=== PATIENT | male | born 1930 | race Caucasian/White ===

== ENCOUNTER 2017-05-13 20:16 | Inpatient (IN) | payer MEDICARE, MEDICAID ==
[~2017-05-13] VITALS: Ht 172.7 cm; Wt 73.5 kg
[2017-05-13] MEDS ORDERED: ONDANSETRON 4 MG/2 ML VIAL IV PRN (21:15)
[2017-05-13] MEDS ORDERED: Z GUARD REMEDY PASTE 57 GM TUBE TOP PRN (21:15)
[2017-05-13] MEDS ORDERED: HYDROCODONE/APAP 5-325MG TABLET PO PRN (21:15)
[2017-05-13] MEDS ORDERED: MAGNESIUM HYDROXIDE 30 ML LIQUID UDC PO PRN (21:15)
[2017-05-13] MEDS ORDERED: ACETAMINOPHEN 325 MG TABLET PO PRN (21:15)
--- NOTE | 2017-05-13 22:00 | NUR ---
Pt luciano from facility. Pt sent here for g-tube placement per PMD (Dr. Lynch) Pt non-verbal, resting in position of comfort for self. No obvious signs of distress. Awaiting further eval.
[2017-05-13 23:51] LABS: BASOPHILS # (AUTO) 0.3 K/uL (0.0-8.0); BASOPHILS % (AUTO) 3.5 % (0.0-2.0); EOSINOPHILS # (AUTO) 0.4 K/uL (0.0-0.7); EOSINOPHILS % (AUTO) 4.8 % (0.0-7.0); HEMOGLOBIN 13.6 G/DL (14.0-18.0); LYMPHOCYTES # (AUTO) 1.8 K/UL (0.8-4.8); LYMPHOCYTES % (AUTO) 22.6 % (20.5-51.5); MEAN CORPUSCULAR HEMOGLOBIN 27.4 UUG (27.0-31.0); MEAN CORPUSCULAR HGB CONC 32 g/dL (32.0-37.0); MEAN CORPUSCULAR VOLUME 86.7 FL (82.0-92.0); MONOCYTES # (AUTO) 0.8 K/UL (0.1-1.30); MONOCYTES % (AUTO) 10.2 % (0.0-11.0); NEUTROPHILS # (AUTO) 4.7 K/UL (1.8-8.9); NEUTROPHILS % (AUTO) 58.9 % (38.5-71.5); PLATELET COUNT (AUTO) 175 K/UL (150-450); RED BLOOD CELL COUNT(AUTO) 4.96 MIL/UL (4.7-6.1)
[2017-05-14 00:07] LABS: CARBON DIOXIDE 25 mmol/L (21-32); CHLORIDE 106 mmol/L (98-107); CREATININE 0.7 mg/dL (0.6-1.3); GLUCOSE 96 mg/dL (74-106); UREA NITROGEN, BLOOD 16 mg/dL (7-18)
[2017-05-14 00:13] LABS: ALANINE AMINOTRANSFERASE 29 U/L (16-63); ALKALINE PHOSPHATASE 93 U/L (50-136); ASPARTATE AMINOTRANSFERASE 25 U/L (15-37); BILIRUBIN,TOTAL 0.5 mg/dL (0.2-1.0); TOTAL PROTEIN, SERUM 8.2 g/dL (6.4-8.2)
--- NOTE | 2017-05-14 00:26 | NUR ---
Report called to CONCHITA Moser. Preparing to transfer pt to the floor.
[2017-05-14] MEDS ORDERED: AMLO10TA2 PO (00:49)
[2017-05-14] MEDS ORDERED: CALC-555 PO (00:49)
[2017-05-14] MEDS ORDERED: LEVE500T9 PO (00:49)
[2017-05-14] MEDS ORDERED: LOSA50TA21 PO (00:49)
[2017-05-14] MEDS ORDERED: LACT1CAP65 PO (00:49)
[2017-05-14] MEDS ORDERED: ACET-2154 PO (00:49)
[2017-05-14] MEDS ORDERED: FAMO-132 PO (00:49)
[2017-05-14] MEDS ORDERED: CRAN450C PO (00:49)
[2017-05-14] MEDS ORDERED: ASCO500W7 PO (00:49)
[2017-05-14] MEDS ORDERED: ATOR10TA PO (00:49)
[2017-05-14] MEDS ORDERED: MULT1TAB11 PO (00:49)
[2017-05-14] MEDS ORDERED: RIVA10TA PO (00:50)
[2017-05-14 01:20] VITALS: BP 115/74
[2017-05-14 01:30] VITALS: BP 115/74
[2017-05-14 04:40] VITALS: BP 129/79
[2017-05-14] MEDS: IV D5 1/2 NS 1000 ML 1,000 ML IV PRN (05:59)
[2017-05-14 07:32] LABS: CARBON DIOXIDE 23 mmol/L (21-32); CHLORIDE 107 mmol/L (98-107); CREATININE 0.7 mg/dL (0.6-1.3); GLUCOSE 95 mg/dL (74-106); MAGNESIUM 1.8 mg/dL (1.8-2.4); PHOSPHOROUS 2.8 mg/dL (2.5-4.9); POTASSIUM 3.7 mmol/L (3.5-5.1); UREA NITROGEN, BLOOD 15 mg/dL (7-18)
[2017-05-14 07:37] LABS: BASOPHILS % (AUTO) 0.3 % (0.0-2.0); EOSINOPHILS # (AUTO) 0.3 K/uL (0.0-0.7); HEMATOCRIT 39.9 % (36.7-47.1); LYMPHOCYTES # (AUTO) 1.7 K/uL (20.0-40.0); LYMPHOCYTES % (AUTO) 21.8 % (20.5-51.5); MEAN CORPUSCULAR HEMOGLOBIN 28.2 uug (23.8-33.4); MEAN CORPUSCULAR HGB CONC 33 g/dL (32.5-36.3); MEAN CORPUSCULAR VOLUME 86.7 fL (73.0-96.2); MONOCYTES % (AUTO) 12.4 % (0.0-11.0); NEUTROPHILS # (AUTO) 4.8 K/uL (1.8-8.9); NEUTROPHILS % (AUTO) 61.5 % (38.5-71.5); PLATELET COUNT (AUTO) 169 K/uL (152-348); WHITE BLOOD COUNT (AUTO) 7.8 K/uL (3.6-10.2)
[2017-05-14 12:11] VITALS: BP 120/84
[2017-05-14] MEDS ORDERED: ACETAMINOPHEN 325 MG TABLET PO PRN (13:00)
[2017-05-14] MEDS: LEVETIRACETAM 500 MG TABLET PO SCH ×2 (13:37→17:00)
[2017-05-14 16:14] VITALS: BP 157/88
[2017-05-14] MEDS ORDERED: FAMOTIDINE 20 MG TABLET PO SCH (16:30)
[2017-05-14 19:50] VITALS: BP 124/86
[2017-05-14] MEDS: ATORVASTATIN 10 MG TABLET PO SCH (21:36)
[2017-05-15 04:25] VITALS: BP 127/85
[2017-05-15] MEDS: FAMOTIDINE 20 MG TABLET PO SCH (08:34)
[2017-05-15] MEDS: CALCIUM CARB/VITAMIN D 500MG-200UNITS TABLET PO SCH (08:34)
[2017-05-15] MEDS: LEVETIRACETAM 500 MG TABLET PO SCH ×3 (08:34→17:26)
[2017-05-15] MEDS: LOSARTAN POTASSIUM 50 MG TABLET PO SCH (08:35)
[2017-05-15] MEDS: AMLODIPINE 10 MG TABLET PO SCH (11:02)
[2017-05-15 11:45] VITALS: BP 130/42
[2017-05-15 15:11] VITALS: BP 117/52
--- NOTE | 2017-05-15 19:30 | NUR ---
Pt in room in no acute distress. Contractions still present to upper extremities. Non verbal and reminded of NPO status. Abdominal ultrasound states Echogenic liver consistent with fatty infiltration. Right leg SCD pump on. Bed alarm noted. Continue to monitor.
[2017-05-15 20:17] VITALS: BP 116/76
[2017-05-15] MEDS: LACTOBACILLUS RHAMNOSUS GG 1 EACH CAPSULE PO SCH (20:20)
[2017-05-15] MEDS: ATORVASTATIN 10 MG TABLET PO SCH (20:20)
--- NOTE | 2017-05-15 23:15 | NUR ---
Pt arrived alert awake oriented to self and . in telemetry sinus rhythm. Pt noted BP 172/69. No s/s of acute distress. Pt noted with redness to sacral and groin area. Able to follow simple commands. Awaiting MD orders. Continuing or Merrem IV antibiotics from ER. Denies pain or discomfort at this time. Addendum: 05/16/17 at 0032 by JASS OROPEZA RN Wrong pt. Please disregard.
--- NOTE | 2017-05-16 01:00 | NUR ---
Pt in room asleep and remains NPO status at this time. Continue to monitor. HOB elevated 30 degrees. Bed alarm on.
--- NOTE | 2017-05-16 05:30 | NUR ---
Stool sample for OB obtained. No acute distress at this time. Continuing NPO and IV hydration. Continue to monitor. Pt repositioned.
[2017-05-16 06:44] VITALS: BP 132/88
[2017-05-16] MEDS: IV D5 1/2 NS 1000 ML 1,000 ML IV PRN (06:46)
--- NOTE | 2017-05-16 07:30 | NUR ---
Awake, non verbal, confused, on moderate high back rest
[2017-05-16] MEDS: LEVETIRACETAM 500 MG TABLET PO SCH ×3 (09:00→17:29)
--- NOTE | 2017-05-16 09:00 | NUR ---
Ate breakfast, pureed with aspiration precaution. Spoke with Dr. Lynch, placed on NPO pending GI consult, plan for PEG
[2017-05-16 12:40] VITALS: BP 101/71
[2017-05-16 15:51] VITALS: BP 126/83
--- NOTE | 2017-05-16 16:15 | NUR ---
Daughter at bedside, spoke with /DPOA Radha, with telephone consent for EGD PEG placement. 1st step mattress applied.
[2017-05-16] MEDS: LACTOBACILLUS RHAMNOSUS GG 1 EACH CAPSULE PO SCH ×2 (17:28→21:21)
[2017-05-16] MEDS: LOSARTAN POTASSIUM 50 MG TABLET PO SCH (17:28)
[2017-05-16] MEDS: CALCIUM CARB/VITAMIN D 500MG-200UNITS TABLET PO SCH (17:29)
[2017-05-16] MEDS: MULTIVIT, IRON, MIN NO. 8, FA TABLET PO SCH (17:29)
[2017-05-16] MEDS: AMLODIPINE 10 MG TABLET PO SCH (17:29)
[2017-05-16] MEDS: ASCORBIC ACID 500 MG TABLET PO SCH (17:29)
[2017-05-16] MEDS: FAMOTIDINE 20 MG TABLET PO SCH (17:29)
--- NOTE | 2017-05-16 18:00 | NUR ---
Incontinence care done. Kept dy and comfortable
--- NOTE | 2017-05-16 19:00 | NUR ---
RECEIVED IN BED WITHOUT DISTRESS,PT IS SCHEDULED FOR G-TUBE PLACEMENT TOMORROW.
[2017-05-16 20:00] VITALS: BP 133/71
[2017-05-16] MEDS: ATORVASTATIN 10 MG TABLET PO SCH (21:21)
[2017-05-17] MEDS: IV D5 1/2 NS 1000 ML 1,000 ML IV PRN ×2 (01:50→15:34)
--- NOTE | 2017-05-17 07:20 | NUR ---
PT SOAKING WET, INCONTINENCE CARE PROVIDED, PT IN NO ACUTE DISTRESS, PT TAKEN OFF FLOOR FOR PEG TUBE PLACEMENT
--- NOTE | 2017-05-17 08:48 | NUR ---
PT BACK IN ROOM FROM PROM PROCEDURE. PEG TUBE IN PLACE RUQ WITH ABDOMINAL BINDER IN PLACE. FEEDING TO START TOMORROW
[2017-05-17] MEDS: LACTOBACILLUS RHAMNOSUS GG 1 EACH CAPSULE PO SCH ×2 (09:28→21:59)
[2017-05-17] MEDS: CALCIUM CARB/VITAMIN D 500MG-200UNITS TABLET PO SCH (09:28)
[2017-05-17] MEDS: AMLODIPINE 10 MG TABLET PO SCH (09:29)
[2017-05-17] MEDS: LEVETIRACETAM 500 MG TABLET PO SCH ×3 (09:29→16:23)
[2017-05-17] MEDS: MULTIVIT, IRON, MIN NO. 8, FA TABLET PO SCH (09:29)
[2017-05-17] MEDS: FAMOTIDINE 20 MG TABLET PO SCH (09:29)
[2017-05-17] MEDS: LOSARTAN POTASSIUM 50 MG TABLET PO SCH (09:29)
[2017-05-17] MEDS: ASCORBIC ACID 500 MG TABLET PO SCH (09:29)
[2017-05-17 11:48] VITALS: BP 114/65
[2017-05-17] MEDS ORDERED: CEFAZOLIN 1 G VIAL MC ONE (12:02)
[2017-05-17] MEDS ORDERED: LIDOCAINE HCL 2% 20 ML VIAL MC ONE (12:02)
[2017-05-17] MEDS ORDERED: IV NORMAL SALINE 1000 ML BAG IV ONE (12:02)
[2017-05-17] MEDS ORDERED: PROPOFOL 200 MG/20 ML BOTTLE IV ONE (12:02)
[2017-05-17 15:45] VITALS: BP 122/87
--- NOTE | 2017-05-17 18:36 | NUR ---
PT IN BED, IN NO ACUTE DISTRESS. GTUBE NOT USED TODAY, MEDS GIVEN ORALLY ORDERED, ALL SAFETY AND COMFORT MEASURES MAINTAINED THROUGHOUT SHIFT, CALL LIGHT IN REACH
--- NOTE | 2017-05-17 19:40 | NUR ---
PT RECEIVED IN BED, ASLEEP. WAKES TO NAME. A/OX1. NON-VERBAL. V/S STABLE. IN NO ACUTE DISTRESS. NO S/S OF PAIN AT THIS TIME. IVF INFUSING ON RA, TOLERATING WELL. PT SEEN WITH THICK MUCUS. SUCTION AND MOUTH CARE PROVIDED. HOB ELEVATED. ON FIRST STEP MATTRESS. SEIZURES PRECAUTIONS IN PLACE. PEG SITE SHOWS NO S/S OF INFECTION, C/D/I, ABDOMINAL BINDER IN PLACE. SAFETY MEASURES IMPLEMENTED. CALL LIGHT WITHIN REACH.
[2017-05-17 20:03] VITALS: BP 96/63
[2017-05-17] MEDS: ATORVASTATIN 10 MG TABLET PO SCH (21:59)
[2017-05-18] MEDS ORDERED: ALBUTEROL SULFATE 2.5 MG/3 ML NEBU NEB PRN ×2 (01:15→02:00)
[2017-05-18] MEDS ORDERED: ALBUTEROL SULFATE 1.25 MG/3 ML NEBU NEB PRN (01:15)
[2017-05-18 04:57] VITALS: BP 131/67
--- NOTE | 2017-05-18 07:25 | NUR ---
Pt in room in no acute distress. Non verbal Right leg SCD pump on. Bed alarm noted. Continue to monitor.
[2017-05-18] MEDS: LOSARTAN POTASSIUM 50 MG TABLET PO SCH (08:01)
[2017-05-18] MEDS: MULTIVIT, IRON, MIN NO. 8, FA TABLET PO SCH (08:01)
[2017-05-18] MEDS: CALCIUM CARB/VITAMIN D 500MG-200UNITS TABLET PO SCH (08:01)
[2017-05-18] MEDS: AMLODIPINE 10 MG TABLET PO SCH (08:01)
[2017-05-18] MEDS: LACTOBACILLUS RHAMNOSUS GG 1 EACH CAPSULE PO SCH ×2 (08:01→20:55)
[2017-05-18] MEDS: LEVETIRACETAM 500 MG TABLET PO SCH ×3 (08:01→16:59)
[2017-05-18] MEDS: FAMOTIDINE 20 MG TABLET PO SCH (08:01)
[2017-05-18] MEDS: ASCORBIC ACID 500 MG TABLET PO SCH (08:01)
--- NOTE | 2017-05-18 09:58 | NUR ---
Consult order placed for GTF formula recommendations. Patient is 87 y/o male with hx of Alzheimer's,dementia, DVT,HTN,GERD,Hyperlipidemia presented form [facility] with failure to thrive Patient had swallow eval on 05/17/17,OUTREACH DIRECTOR recommended puree and honey thick liquid for oral gratification Per MD noted, patient had PEG placed today. skin intact: Aditya score 13 labs: albumin-3.2 medication:vitamin C,MVI,Norvasc,lipitor,keppra no DNI Anthropometry:current weight is 162lb,BMI 24.6, pt is 104% IBW. Estimated kcal/protein needs calculated based on current body weight 74 kg kcal: 25-30 kcal/k4257-3029 kcal/kg protein:1-1.2 gm/k-89 Fluids:25-30 ml/k-2220ml/kg RD will recommend continues GTF, rec initiate TF at 25 ml/hr and advance [id number] (as patient tolerates with minimum residual), to goal rate of Fibersource HN @75ml/hr x 22 hrs. This nutrition support will provide 1980 kcal,89 gm protein, & 1332 ml free water. Rec water flushes [id number](500 ml/day). monitor: Tolerates TF with minimum residual,labs,weight outcome: meet 90-100% of estimated kcal/protein needs no significant weight changes during hospital stay no N/V/D/C Addendum: 05/18/17 at [address] Amended: Links added.
[2017-05-18] MEDS ORDERED: FIBERSOURCE HN 1000ML LIQUID GT PRN (10:30)
[2017-05-18 11:02] VITALS: BP 107/54
--- NOTE | 2017-05-18 11:55 | NUR ---
G TUBE FEEDING STARTED AT THE RATE OF 25 CC /HRS.PER MD ORDERS.
[2017-05-18 15:11] VITALS: BP 110/62
--- NOTE | 2017-05-18 18:03 | NUR ---
G TUBE FEEDING STARTED AT THE RATE OF 35 CC /HRS.PER MD ORDERS
[2017-05-18 19:42] VITALS: BP 130/86
[2017-05-18] MEDS: ATORVASTATIN 10 MG TABLET PO SCH (20:56)
[2017-05-19 06:17] VITALS: BP 114/75
--- NOTE | 2017-05-19 07:30 | NUR ---
Pt in room in no acute distress. Non verbal Right leg SCD pump on. Bed alarm noted. Continue to monitor
[2017-05-19 08:37] VITALS: BP 118/75
[2017-05-19] MEDS: FAMOTIDINE 20 MG TABLET PO SCH (08:37)
[2017-05-19] MEDS: LACTOBACILLUS RHAMNOSUS GG 1 EACH CAPSULE PO SCH (08:37)
[2017-05-19] MEDS: LOSARTAN POTASSIUM 50 MG TABLET PO SCH (08:37)
[2017-05-19] MEDS: MULTIVIT, IRON, MIN NO. 8, FA TABLET PO SCH (08:37)
[2017-05-19] MEDS: LEVETIRACETAM 500 MG TABLET PO SCH (08:37)
[2017-05-19] MEDS: AMLODIPINE 10 MG TABLET PO SCH (08:37)
[2017-05-19] MEDS: CALCIUM CARB/VITAMIN D 500MG-200UNITS TABLET PO SCH (08:37)
[2017-05-19] MEDS: ASCORBIC ACID 500 MG TABLET PO SCH (08:37)
--- NOTE | 2017-05-19 10:06 | NUR ---
D/C ORDERS RECEIVED NOTED AND CARRIED OUT.RN REPORT GIVEN OVER INTERMEDIATE,D/C HEPLOCK PER MD ORDERS.PT LEFT THE FACILITY VIA AMBULANCES IN STABLE CONDITION.
== END 2017-05-19 10:15 | DRG 640 ==
LOC: ER 20:19 → MED 23:10
PROVIDERS: ADMIT Internal Medicine; ATTEND Internal Medicine
PROC: 0DH63UZ Insertion of Feeding Device into Stomach, Percutaneous Approach (ICD-10-PCS; principal; 2017-05-17 07:30)
DX: R62.7 Adult failure to thrive (principal); G93.41 Metabolic encephalopathy; E86.0 Dehydration; R13.10 Dysphagia, unspecified; G30.9 Alzheimer's disease, unspecified; E44.1 Mild protein-calorie malnutrition; F02.80 Dementia in other diseases classified elsewhere, unspecified severity, without behavioral disturbance, psychotic disturbance, mood disturbance, and anxiety; E78.5 Hyperlipidemia, unspecified; G40.909 Epilepsy, unspecified, not intractable, without status epilepticus; K21.9 Gastro-esophageal reflux disease without esophagitis; K76.0 Fatty (change of) liver, not elsewhere classified; Z79.01 Long term (current) use of anticoagulants; Z86.718 Personal history of other venous thrombosis and embolism; Z68.24 Body mass index [BMI] 24.0-24.9, adult; G31.9 Degenerative disease of nervous system, unspecified; I10 Essential (primary) hypertension
CPT/HCPCS: 36415; 43235; 71010; 76700; 83735; 84100; 85025; 85610; 85730; 92507; 92610; 94664; A4217; A4663; J0690; J3490; J7030